=== PATIENT | female | born 1990 | race Caucasian/White ===

== ENCOUNTER 2016-08-17 02:44 | Emergency (ER) | payer OTHER ==
[~2016-08-17] VITALS: Ht 160 cm; Wt 65.0 kg
[~2016-08-17 02:44] MED LIST: LEVE500 PO
[2016-08-17 02:48] VITALS: BP 120/71; PULSE 92; RESP 14; TEMP 97.4; O2SAT 97
--- NOTE | 2016-08-17 03:08 | PD ---
HPI Chief Complaint: vaginal bleeding Time Seen by Provider: 02:59 Travel History International Travel<30 days: No Contact w/Intl Traveler<30days: No History of Present Illness HPI 26-year-old female 5 para 3 1 complains of vaginal spotting for 2 days, only noticeable after using the bathroom. She is had minimal abdominal cramping. She's had no back pain. As of yet no ultrasound has been performed. She denies nausea vomiting fever or chills. Based on last menstruation she is believed to be about 2 months . She describes occasional mild abdominal cramps. No nausea vomiting fever or chills. 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 HEAD: Atraumatic. Normocephalic. EYES: Pupils equal and round. No scleral icterus. No injection or drainage. ENT: No nasal bleeding or discharge. Mucous membranes pink and moist. NECK: Trachea midline. No JVD. CARDIOVASCULAR: Regular rate and rhythm. No murmur appreciated. RESPIRATORY: No accessory muscle use. Clear to auscultation. Breath sounds equal bilaterally. GASTROINTESTINAL: Soft. Minimal tenderness and suprapubic abdomen distribution. MUSCULOSKELETAL: No obvious deformities. No clubbing. No cyanosis. No edema. NEUROLOGICAL: Awake and alert. No obvious cranial nerve deficits. Motor grossly within normal limits. Normal speech. PSYCHIATRIC: Appropriate mood and affect; insight and judgment normal. Data Data Last Documented VS Vital Signs Date Time Temp Pulse Resp B/P Pulse Ox O2 Delivery O2 Flow Rate FiO2 08/17/16 02:48 97.4 92 14 120/71 97 Room Air Vital signs reviewed Orders Beta Hcg (Quant/Titer) (08/17/16 03:14) Complete Rh (08/17/16 03:14) Urinalysis - C+S If Indicated (08/17/16 03:14) Us Pelvis (Ques Pr/Ect)W Trans (08/17/16 ) Labs Laboratory Tests Test 08/17/16 03:15 Urine Color YELLOW Urine Turbidity CLEAR Urine pH 6.0 Urine Specific [place] 1.024 Urine Protein TRACE mg/dL Urine Glucose (UA) NEG mg/dL Urine Ketones NEG mg/dL Urine Occult Blood NEG Urine Nitrite NEG Urine Bilirubin NEG Urine Urobilinogen LESS THAN 2.0 MG/DL Urine Leukocyte Esterase NEG Urine RBC 1 /hpf Urine WBC 1 /hpf Urine Squamous Epithelial 1 /hpf Cells Urine Bacteria RARE /hpf Urine Mucus FEW /lpf Microscopic Urinalysis Comment CULT NOT INDICATED Human Chorionic Gonadotropin, [id number] MIU/ML Quant Blood Type O POSITIVE Rho(D) Type POSITIVE MDM Medical Decision Making Medical Screen Exam Complete: Yes Emergency Medical Condition: Yes Medical Record Reviewed: Yes Differential Diagnosis IUP, UTI, ectopic , ov torsion, appendicitis, TOA, cervicitis, BV, Trichomoniasis, ov cyst, hernia, mittelschmerz, pain from menstruation Narrative Course UA: possible bacteriuria HC,787 O positive US: 9w2d iup with subchorionic hemorrhage The patient is resting comfortably and feels better, is alert and in no distress. The patients results and examination findings were discussed. The repeat examination is unremarkable and benign. The history, exam, diagnostic testing, and current condition do not suggest any significant pathology to warrant further testing, continued ED treatment, admission, or surgical evaluation at this point. The vital signs have been stable. The patient does not have uncontrollable pain, intractable vomiting, or other significant symptoms. The patient's condition is stable and appropriate for discharge. The patient will pursue further outpatient evaluation with a primary care physician or other designated or consulting physician as indicated in the discharge instructions. The patient expressed understanding and was agreeable with this plan. Diagnosis Primary Impression: Threatened miscarriage in early Additional Impressions: Subchorionic hemorrhage in first trimester Bacteriuria during in first trimester Referrals: Helene Hendricks MD 2 days Additional Instructions: You have a choice when it comes to health care, and we are glad that you chose [facility]. Hopefully, we have met your expectations on today's visit. You are welcome to return to [facility] at any time, as we are committed to meeting the health care needs of our community. Med/Other Pt SpecificInfo: Prescription(s) given Scripts Cephalexin (Keflex)500 Mg [id number] Mg PO Q12H 5 Days Ref 0 Prov:Chepe Saavedra MD 08/17/16 Multivit-Min W/Fe-FA ( Forte)1 Tab Tab1 Tab PO DAILY 90 Days Ref 3 Prov:Chepe Saavedra MD 08/17/16 Disposition: 01 DISCHARGE HOME Condition: Stable Chepe Saavedra MD Aug 17, 2016 03:07
[2016-08-17 04:02] LABS: BACTERIA, URINE RARE /hpf; BLOOD, URINE NEG (NEG); COMMENT (UR) CULT NOT INDICATED; CULTURE IF INDICATED CULT NOT INDICATED; GLUCOSE,URINE NEG (NEG); KETONE, URINE NEG (NEG); MUCUS URINE FEW /lpf (OCC); NITRITE,URINE NEG (NEG); SQUAMOUS EPITHELIAL CELL URINE 1 /hpf (0-5); URINE COLOR YELLOW (YELLW/STRAW)
[2016-08-17] MEDS ORDERED: PRENTAB36 PO (04:03)
[2016-08-17 04:12] LABS: BETA HCG QUANT 121787 MIU/ML (0-5)
--- NOTE | 2016-08-17 05:57 | RADRPT ---
EXAM DATE/TIME: 08/17/2016 04:43 [facility] COMPARISON: No previous studies available for comparison. INDICATIONS : Pelvic pain. Bleeding. LAB(S): Beta-hC MEDICAL HISTORY : . Seizures. Depression. IV meth use daily. SURGICAL HISTORY : No recprded surgical history. ENCOUNTER: Initial ACUITY: 4-6 days PAIN SCORE: 6/10 LOCATION: Bilateral pelvis MEASUREMENTS: UTERUS: 11.8 x 8.5 x 8.9 cm ENDOMETRIAL STRIPE: >20 mm RIGHT OVARY: 3.3 x 1.8 x 2.2 cm LEFT OVARY: 2.7 x 1.3 x 1.2 cm TV PROBE UTILIZED: Probe#4 - SN [id number] FINDINGS: UTERUS: Gestational sac in view of sac and pole noted. [employer]-rump length is approximately 2.54 cm which corresponds to a gestational age of 9 weeks 2 days. heart tones are demonstrated. There is a 2 .0 x 1.2 x 2.0 cm subchorionic hemorrhage. RIGHT OVARY: Ovary contains no mass or significant cystic lesion. LEFT OVARY: Ovary contains no mass or significant cystic lesion. MISCELLANEOUS: Trace free fluid. CONCLUSION: Single, viable intrauterine with a subchorionic hemorrhage as above. Mango Gracia MD on August 17, 2016 at 5:54 Board Certified Radiologist. This report was verified electronically.
[2016-08-17] MEDS ORDERED: CEPH-460 PO (06:03)
== END 2016-08-17 06:31 | disposition home or self-care (01) ==
LOC: NEPE 02:44
DX: O20.0 Threatened abortion (principal); O46.8X1 Other antepartum hemorrhage, first trimester; O28.8 Other abnormal findings on antenatal screening of mother; Z3A.08 8 weeks gestation of pregnancy
CPT/HCPCS: 76700; 76817; 81001; 84702; 86901

== ENCOUNTER 2016-11-14 20:09 | Emergency (ER) | payer OTHER ==
[~2016-11-14 20:09] MED LIST changes: +CEPH-460 PO; -LEVE500 PO; +PRENTAB36 PO
[2016-11-14] MEDS ORDERED: CEPH-460 PO (21:08)
--- NOTE | 2016-11-14 21:09 | PD ---
HPI Chief Complaint This patient presents here for check of viability because she is being [employer] acted may have to have that before the take her, she she can out of assisted today, been in the assisted 3 months, Date Seen: November 14, 2016 Travel History International Travel<30 Days: No Contact w/Intl Traveler<30Days: No Known Affected Area: No History of Present Illness HPI This patient is 26-year-old white female G 5 para 3 A1 now at 23 weeks presents for viability check before she can be [facility] she denies abdominal pain ,bleeding ,leakage of fluid the patient's been injected over the last 3 months she's got out today and is going to the [facility] and that to another facility. And at that facility that Dr. Mesa will see the patient , she has not seen Dr. Mesa as of yet her only complaint is of which she describes as a cellulitis in both her pretibial lower extremities that she's been on Keflex for for several days and now needs another prescription for Keflex to continue that medication Para: 3 : 5 History Obstetric History Obstetric History 3 vaginal deliveries and 1 loss Social History Narrative Social History Patient just getting out of assisted today and [facility] now Alcohol Use: Yes Tobacco Use: Yes Substance Abuse: Yes Allergies-Medications (Allergen,Severity, Reaction): Coded Allergies: No Known Allergies (Verified , 08/17/16) Home Meds Active Scripts Cephalexin (Keflex)500 Mg [id number] Mg PO Q6H #30 CAP Ref 0 Prov:Luis Darnell II, MD 11/14/16 Cephalexin (Keflex)500 Mg [id number] Mg PO Q12H 5 Days Ref 0 Prov:Chepe Saavedra MD 08/17/16 Multivit-Min W/Fe-FA ( Forte)1 Tab Tab1 Tab PO DAILY 90 Days Ref 3 Prov:Chepe Saavedra MD 08/17/16 Review of Systems General / Constitutional: No: Fever, Weight Gain, Chills, Other Eyes: No: Diploplia, Blurred Vision, Visual changes, Pain, Photophobia HENT: No: Headaches, Vertigo, Lightheadedness Cardiovascular: No: Irregular Rhythm, Chest Pain or Discomfort, Palpitations, Tachycardia, Syncope, Varicosities, Edema, Cyanosis Respiratory: No: Cough, Short of Breath, Other Gastrointestinal: No: Nausea, Vomiting, Diarrhea Genitourinary: No: Decreased Urinary Output, Oliguria Musculoskeletal: Pain, No: Limited ROM, Weakness, Cramping, Edema Skin: Rash, No Itching, No Dryness, No Lumps, No Change in Pigmentation, No Change in Nails, No Alopecia, No Lesions Neurologic: No: Weakness, Dizziness, Syncope, Focal Abnormalities, Coordination Problem, Headache, Slurred Speech, Seizures Psychiatric: No: Depression, Suicidal Ideations, Homicidal Ideation Endocrine: No: Heat Intolerance, Cold Intolerance, Polydipsia, Polyuria, Other Physical Exam Narrative GENERAL: Well-nourished, well-developed patient. SKIN: Warm and dry. HEAD: Normocephalic and atraumatic. EYES: No scleral icterus. No injection or drainage. ENT: No nasal drainage noted. Mucous membranes pink. Airway patent. NECK: Supple, trachea midline. No JVD. CARDIOVASCULAR: Regular rate and rhythm without murmurs, gallops, or rubs. RESPIRATORY: Breath sounds equal bilaterally. No accessory muscle use. BREASTS: Bilateral exam showed no masses , no retractions, no nipple discharge. ABDOMEN/GI: Abdomen soft, non-tender, bowel sounds present, no rebound, no guarding Gravid to [23-] weeks size Fundal Height: [23-] GENITOURINARY: Membranes: [intact ] Uterine Contractions: [none-] FHT's: Category: [-1] Baseline: [-133] Reactive: [-] too early Variability: [-mod] Decels: [-] EXTREMITIES patient's of pretibial shins bilaterally are somewhat swollen and somewhat tender and is very slight pink rash on both sides consistent with a mild cellulitis BACK: Nontender without obvious deformity. No CVA tenderness. NEUROLOGICAL: Awake and alert. Motor and sensory grossly within normal limits. Five out of 5 muscle strength in all muscle groups. Normal speech. MDM Interpretation(s) 26-year-old white female at 23 weeks who presents for check of viability before she can go to the [employer], she has no obstetric problem baby's heart rate tracing is within normal limits no contractions she has no pain bleeding or leakage of fluid. Her cervix was not checked tonight her only complaint is positive mild cellulitis in both lower extremities below the knees in the pretibial area ,.diagnosed recently had been on Keflex for this she wants a repeat a prescription for Keflex to continue that. viability was documented with a reassuring heart rate tracing and the fact patient states baby is active Plan Plan to give her a prescription for Keflex 500mg , 4 times a day tonight she is to elevate her legs with ice packs on decreased swelling Diagnosis Diagnosis: Primary Impression: Drug use affecting in second trimester Additional Impression: Cellulitis Disposition: 70 TRANSFER TO OTHER FACILITY Condition: Stable Scripts Cephalexin (Keflex)500 Mg [id number] Mg PO Q6H #30 CAP Ref 0 Prov:Luis Darnell II, MD 11/14/16 Luis Darnell II, MD November 14, 2016 21:09
== END 2016-11-14 21:23 | disposition short-term general hospital (02) ==
LOC: HOBED 20:09
DX: O99.322 Drug use complicating pregnancy, second trimester (principal); L03.116 Cellulitis of left lower limb; L03.115 Cellulitis of right lower limb; Z3A.23 23 weeks gestation of pregnancy; Z72.0 Tobacco use; F19.10 Other psychoactive substance abuse, uncomplicated
CPT/HCPCS: 99283

== ENCOUNTER 2017-02-27 13:52 | Inpatient (IN) | payer OTHER ==
[2017-02-27] VITALS (51 sets, daily range): BP systolic 96–133; BP diastolic 57–83; PULSE 68–105; RESP 18; TEMP 97.8–97.9
[~2017-02-27] VITALS: Ht 167.6 cm; Wt 90.7 kg
[2017-02-27] MEDS ORDERED: LACTATED RINGER'S 1000 ML INJ 1,000 ML IV PRN (15:27)
[2017-02-27] MEDS ORDERED: LIDOCAINE HCL 1% 50 ML VIAL I-DERMAL PRN (15:30)
[2017-02-27] MEDS ORDERED: OXYTOCIN 30 UNITS-500ML PREMIX 500 ML IV SCH (15:30)
[2017-02-27] MEDS ORDERED: CITRIC ACID-SODIUM CITRATE LIQ 30 ML UDC PO SCH (15:30)
[2017-02-27] MEDS ORDERED: SODIUM CHLORID 0.9% 500 ML INJ 500 ML IV PRN (15:30)
[2017-02-27] MEDS ORDERED: MINERAL OIL 10 ML VIAL TOPICAL PRN ×2 (15:30→17:45)
[2017-02-27] MEDS ORDERED: LIDOCAINE HCL 1% 50 ML VIAL INFIL PRN ×2 (15:30→17:45)
[2017-02-27] MEDS ORDERED: OXYTOCIN 30 UNITS-500ML PREMIX 500 ML IV ONE ×2 (15:30→17:45)
[2017-02-27] MEDS ORDERED: FERR325C PO (15:37)
[2017-02-27] MEDS ORDERED: BENA25TA6 PO (15:37)
[2017-02-27] MEDS ORDERED: BUPR2SUB SL (15:37)
[2017-02-27] MEDS ORDERED: SODIUM CHLOR 0.9% 1000 ML INJ 1,000 ML IV PRN (15:47)
[2017-02-27] MEDS: LACTATED RINGER'S 1000 ML INJ 1,000 ML IV SCH ×2 (16:10→21:00)
[2017-02-27 16:21] LABS: AUTOMATED NEUTROPHIL # 5.3 TH/MM3 (1.8-7.7); BASOPHIL % 0.3 % (0.0-2.0); EOSINOPHIL # 0.2 TH/MM3 (0-0.4); EOSINOPHIL % 2.5 % (0.0-4.0); HEMATOCRIT 35.2 % (35.0-46.0); HEMO FLAGS DIFF FINAL; LYMPH % 25.3 % (9.0-44.0); MEAN CELL VOLUME 85.3 FL (80.0-100.0); MEAN CORPUSCULAR HEMOGLOBIN 28.4 PG (27.0-34.0); MEAN CORPUSCULAR HGB CONC 33.3 % (32.0-36.0); MONO % 6.5 % (0.0-8.0); NEUT % 65.4 % (16.0-70.0); PLATELET COUNT 120 TH/MM3 (150-450); RED BLOOD COUNT 4.12 MIL/MM3 (4.00-5.30); RED CELL DISTRIBUTION WIDTH 18.8 % (11.6-17.2); WHITE BLOOD COUNT 8.1 TH/MM3 (4.0-11.0)
[2017-02-27 16:24] LABS: BACTERIA, URINE FEW /hpf; BLOOD, URINE NEG (NEG); COMMENT (UR) CULTURE INDICATED; CULTURE IF INDICATED CULTURE INDICATED; GLUCOSE,URINE NEG (NEG); KETONE, URINE NEG (NEG); MUCUS URINE FEW /lpf (OCC); NITRITE,URINE NEG (NEG); SQUAMOUS EPITHELIAL CELL URINE 26 /hpf (0-5); TRANSITIONAL EPI CELLS, URINE <1 /hpf; URINE COLOR YELLOW (YELLW/STRAW)
--- NOTE | 2017-02-27 17:49 | PD.LABORPN ---
Subjective Subjective admitted at 37 6/7 for 6/10 BPP and inducible cervix. [facility] brought her around 2 :15. Pitocin started. GBS not back yet. She is currently comfortably at 6 mu/ min Objective Vital Signs Vital Signs Date Time Temp Pulse Resp B/P Pulse Ox O2 Delivery O2 Flow Rate FiO2 02/27/17 17:38 97.8 02/27/17 17:17 68 125/74 02/27/17 16:48 73 106/66 02/27/17 16:48 73 106/66 02/27/17 16:48 73 106/66 02/27/17 16:15 83 112/78 Objective strip category 1 3-4 cm /50 %/-2 Arom clear Assessment/Plan Assessment and Plan anticpate epidural prn Diya Mesa MD Feb 27, 2017 17:49
[2017-02-27] MEDS ORDERED: PENICILLIN G POTASSIUM INJ 5,000,000 UNITS in SODIUM CHLORIDE 0.9% INJ 100 ML IV ONE (18:00)
--- NOTE | 2017-02-27 18:58 | HHI.HP ---
HPI Chief Complaint 376/7 late entrant to [facility] residing at [facility] low platelets in snf substance use disorder on subutex 2mg daily Date Seen: Feb 27, 2017 Travel History International Travel<30 Days: No Contact w/Intl Traveler<30Days: No Known Affected Area: No History of Present Illness HPI 26 yo swf first to our office at 37 weeks with some care at [facility]. Known Hep C. Placed on subutex 2 mg daily for substance use disorder. BPP in my office today 12/21 with 3 cm cervix and irregular UCs. Placenta is grade 3. States she feels she is going into labor and has decreased movement. Sent for induction. Para: 3 : 5 Allergies-Medications (Allergen,Severity, Reaction): Coded Allergies: No Known Allergies (Verified , 02/27/17) Home Meds Active Scripts Multivit-Min W/Fe-FA ( Forte)1 Tab Tab1 Tab PO DAILY 90 Days Ref 3 Prov:Chepe Saavedra MD 08/17/16 Reported Medications Diphenhydramine HCl (Benadryl Allergy)25 Mg Tablet Po Bid 02/27/17 Ferrous Sulfate (Iron)325 Mg [id number] Mg PO BIDPC #60 TAB Ref 0 02/27/17 Buprenorphine 2 Mg Subl2 Mg SL 02/27/17 Discontinued Scripts Cephalexin (Keflex)500 Mg [id number] Mg PO Q6H #30 CAP Ref 0 Prov:Luis Darnell II, MD 11/14/16 Cephalexin (Keflex)500 Mg [id number] Mg PO Q12H 5 Days Ref 0 Prov:Chepe Saavedra MD 08/17/16 Physical Exam Vital Signs Date Time Temp Pulse Resp B/P Pulse Ox O2 Delivery O2 Flow Rate FiO2 02/27/17 18:27 18 02/27/17 18:27 82 120/76 02/27/17 18:23 70 133/78 02/27/17 17:38 97.8 02/27/17 17:30 18 02/27/17 17:17 68 125/74 02/27/17 17:00 18 02/27/17 16:48 73 106/66 02/27/17 16:48 73 106/66 02/27/17 16:48 73 106/66 02/27/17 16:30 18 02/27/17 16:15 83 112/78 Narrative GENERAL: Well-nourished, well-developed patient. Very poor dentition SKIN: Warm and dry. old scars and tracks HEAD: Normocephalic and atraumatic. EYES: No scleral icterus. No injection or drainage. ENT: No nasal drainage noted. Mucous membranes pink. Airway patent. NECK: Supple, trachea midline. No JVD. CARDIOVASCULAR: Regular rate and rhythm without murmurs, gallops, or rubs. RESPIRATORY: Breath sounds equal bilaterally. No accessory muscle use. BREASTS: Bilateral exam showed no masses , no retractions, no nipple discharge. ABDOMEN/GI: Abdomen soft, non-tender, bowel sounds present, no rebound, no guarding Gravid to [-] weeks size Fundal Height: [-] GENITOURINARY: External Genitalia: intact and normal in appearance 50/-2/3-4 strip here category 1] EXTREMITIES: No cyanosis or edema. BACK: Nontender without obvious deformity. No CVA tenderness. NEUROLOGICAL: Awake and alert. Motor and sensory grossly within normal limits. Five out of 5 muscle strength in all muscle groups. Normal speech. Data Data Orders Admit To Inpatient (02/27/17 ) Code Status (02/27/17 15:27) Vital Signs (Adult) .Per protocol (02/27/17 15:27) Activity Oob Ad Brittni (02/27/17 15:27) Heart (02/27/17 15:27) Amnioinfusion (02/27/17 15:27) Urinary Catheter Management .ONCE (02/27/17 15:27) Diet Liquid (02/27/17 Dinner) Lactated Ringer's 1000 Ml Inj (Lr 1000 M (02/27/17 15:27) Lactated Ringer's 1000 Ml Inj (Lr 1000 M (02/27/17 15:27) Sodium Chlorid 0.9% 500 Ml Inj (Ns 500 M (02/27/17 15:30) Sodium Chlor 0.9% 1000 Ml Inj (Ns 1000 M (02/27/17 15:47) Lidocaine 1% Inj (50 Ml) (Xylocaine 1% I (02/27/17 15:30) Citric Acid-Sodium Citrate Liq (Bicitra (02/27/17 15:30) Fentanyl Inj (Fentanyl Inj) (02/27/17 15:30) Fentanyl Inj (Fentanyl Inj) (02/27/17 15:30) Complete Blood Count With Diff (02/27/17:) Hold Clot (02/27/17) Abo/Rh Blood Type (02/27/17:) Urinalysis - C+S If Indicated (02/27/17:) Rapid Plasma Regin (Rpr) W Ttr (02/27/17:) Hepatitis Profile (02/27/17:) No Care Spec Serology (02/27/17:) Resp Oxygen Non Rebreathe Mask (02/27/17 ) ^ Epidural / Intrathecal Infus (02/27/17:) Oxytocin 30 Units-500ml Premix (Pitocin (02/27/17:30) Lidocaine 1% Inj (50 Ml) (Xylocaine 1% I (02/27/17) Light Mineral Oil (Muri-Lube Oil) (02/27/17:) ^ Non Stress Test (02/27/17) Response To Medication .Post New Med Administration, Reaction (02/27/17:) ^ Discontinue Medication (02/27/17:) Oxytocin 30 Units-500ml Premix (Pitocin (02/27/17:30) Inpatient Certification (02/27/17 ) Specimen To Be Collected PRN (02/27/17 15:27) Urine Culture (02/27/17 15:00) Penicillin G Potassium Inj (Pfizerpen-G (02/27/17 18:00) Penicillin G Potassium Inj (Pfizerpen-G (02/27/17 22:00) Resp Oxygen Non Rebreathe Mask (02/27/17 ) Labs Laboratory Tests Test 02/27/17 02/27/17 14:45 15:00 White Blood Count 8.1 Red Blood Count 4.12 Hemoglobin 11.7 Hematocrit 35.2 Mean Corpuscular Volume 85.3 Mean Corpuscular Hemoglobin 28.4 Mean Corpuscular Hemoglobin 33.3 Concent Red Cell Distribution Width 18.8 Platelet Count 120 Mean Platelet Volume 10.7 Neutrophils (%) (Auto) 65.4 Lymphocytes (%) (Auto) 25.3 Monocytes (%) (Auto) 6.5 Eosinophils (%) (Auto) 2.5 Basophils (%) (Auto) 0.3 Neutrophils # (Auto) 5.3 Lymphocytes # (Auto) 2.0 Monocytes # (Auto) 0.5 Eosinophils # (Auto) 0.2 Basophils # (Auto) 0.0 CBC Comment DIFF FINAL Differential Comment Blood Type O POSITIVE Band and Hold Urine Color YELLOW Urine Turbidity HAZY Urine pH 6.0 Urine Specific [place] 1.021 Urine Protein TRACE Urine Glucose (UA) NEG Urine Ketones NEG Urine Occult Blood NEG Urine Nitrite NEG Urine Bilirubin NEG Urine Urobilinogen LESS THAN 2.0 Urine Leukocyte Esterase MOD Urine RBC 2 Urine WBC 9 Urine Squamous Epithelial 26 Cells Urine Transitional Epithelial <1 Cells Urine Amorphous Sediment RARE Urine Bacteria FEW Urine Mucus FEW Microscopic Urinalysis Comment CULTURE INDICATED Date/Time Procedure Status Source Growth 02/27/17 15:00 Urine Culture Received Urine Clean Catch Pending Assessment/Plan Assessment and Plan admit for induction via AROM and pitocin anticipate continue subutex at 2 mg sublingual in am. Diya Mesa MD Feb 27, 2017 18:58
--- NOTE | 2017-02-27 19:00 | PD.LABORPN ---
Subjective Subjective getting more uncomfortable complaining of headache Objective Vital Signs Vital Signs Date Time Temp Pulse Resp B/P Pulse Ox O2 Delivery O2 Flow Rate FiO2 02/27/17 18:27 18 02/27/17 18:27 82 120/76 02/27/17 18:23 70 133/78 02/27/17 17:38 97.8 02/27/17 17:30 18 02/27/17 17:17 68 125/74 02/27/17 17:00 18 02/27/17 16:48 73 106/66 02/27/17 16:48 73 106/66 02/27/17 16:48 73 106/66 02/27/17 16:30 18 02/27/17 16:15 83 112/78 Objective strip category 1 4/50% /-1 well applied Assessment/Plan Assessment and Plan treat headache epidural prn. Diya Mesa MD Feb 27, 2017 19:00
[2017-02-27] MEDS ORDERED: ACETAMINOPHEN 325 MG TAB PO ONE (20:00)
[2017-02-27] MEDS ORDERED: fentaNYL 2MCG-BUPIV 0.125% INJ 100 ML ONE (20:43)
[2017-02-27] MEDS ORDERED: ePHEDrine/NS 25 MG/5 ML SYR IV PRN (22:00)
[2017-02-27] MEDS ORDERED: DO NOT ADMINISTER ANTICOAGULANTS PRN (22:00)
[2017-02-27] MEDS ORDERED: NO SYSTEM NARCOTICS PRN (22:00)
[2017-02-27] MEDS: PENICILLIN G POTASSIUM INJ 2,500,000 UNITS in SODIUM CHLORIDE 0.9% INJ 100 ML IV SCH (22:34)
[2017-02-27] MEDS: fentaNYL 2MCG-BUPIV 0.125% 100 ML EPIDURAL SCH (22:34)
[2017-02-28] VITALS (79 sets, daily range): BP systolic 86–132; BP diastolic 44–78; PULSE 64–115; RESP 16–18; TEMP 97–98.7
[2017-02-28] MEDS: LACTATED RINGER'S 1000 ML INJ 1,000 ML IV SCH
[2017-02-28] MEDS: PENICILLIN G POTASSIUM INJ 2,500,000 UNITS in SODIUM CHLORIDE 0.9% INJ 100 ML IV SCH ×3 (03:04→10:00)
[2017-02-28] MEDS: fentaNYL 2MCG-BUPIV 0.125% 100 ML EPIDURAL SCH ×3 (03:47→08:17)
[2017-02-28] MEDS ORDERED: BUPIVACAINE HCL PF 0.25% 10 ML VIAL ONE (05:33)
[2017-02-28] MEDS ORDERED: LIDOCAINE HCL 1.5% PF SOLN 20 ML AMP ONE (05:33)
--- NOTE | 2017-02-28 07:24 | PD.OB.DELI ---
Anesthesia: Epidural Episiotomy: None Vaginal Delivery: Normal Presentation: Occiput anterior Nuchal Cord: Other (true knot) Delayed cord clamping (45 sec): Yes : Female One Minute : 8 Five Minute : 9 Weight: >8 Placenta: Spontaneous delivery Laceration: No lacerations (mom on subutex 2mg daily earlier history of polysubstance abuse) Diya Mesa MD Feb 28, 2017 07:24
[2017-02-28] MEDS ORDERED: SODIUM CHLORIDE 0.9% FLUSH 10 ML FLUSH IV FLUSH PRN (07:30)
[2017-02-28] MEDS ORDERED: ONDANSETRON ODT 4 MG TAB PO PRN (07:30)
[2017-02-28] MEDS ORDERED: BENZOCAINE 20% TOPICAL SPRAY 60 ML CAN TOPICAL PRN (07:30)
[2017-02-28] MEDS ORDERED: ALUMINUM/MAGNESIUM/SIMETH 30 ML CUP PO PRN (07:30)
[2017-02-28] MEDS ORDERED: OXYTOCIN 30 UNITS-500ML PREMIX 500 ML IV SCH (07:30)
[2017-02-28] MEDS ORDERED: DOCUSATE SODIUM 50 MG/SENNA 8.6 MG TAB PO PRN (07:30)
[2017-02-28] MEDS ORDERED: WITCH HAZEL 50%/GLYCERIN 12.5% 40 PAD JAR TOPICAL PRN (07:30)
[2017-02-28] MEDS ORDERED: ZOLPIDEM TARTRATE 5 MG TAB PO PRN (07:30)
[2017-02-28] MEDS ORDERED: BUPRENORPHINE HCL 8 MG SUBLINGUAL TAB SL ONE (07:30)
[2017-02-28] MEDS: IBUPROFEN 600 MG TAB PO PRN ×3 (08:24→23:41)
[2017-02-28] MEDS ORDERED: SODIUM CHLORIDE 0.9% FLUSH 10 ML FLUSH IV FLUSH SCH (09:00)
[2017-02-28] MEDS: ACETAMINOPHEN 325 MG TAB PO PRN ×4 (10:00→23:41)
[2017-02-28] MEDS: BUPRENORPHINE HCL 8 MG SUBLINGUAL TAB SL SCH (13:30)
[2017-02-28] MEDS ORDERED: PILL SPLITTER OTHER PRN (13:45)
[2017-02-28] MEDS ORDERED: DIPHTH/TETANUS/ACEL PERTUSSIS (BOOSTER) 0.5 ML VIAL/PFS IM ONE (16:00)
[2017-02-28] MEDS ORDERED: MEASLES, MUMPS, RUBELLA VACCINE 0.5 ML VIAL SQ ONE (16:00)
[2017-03-01] MEDS: ACETAMINOPHEN 325 MG TAB PO PRN (05:59)
[2017-03-01] MEDS: IBUPROFEN 600 MG TAB PO PRN (05:59)
[2017-03-01 08:00] VITALS: BP 110/78; PULSE 77; RESP 16; TEMP 98.7
--- NOTE | 2017-03-01 08:02 | HHI.OB ---
Subjective Post Day: 1 Remarks sad with imminent separation needs suboxone back to [facility] today Objective Vitals/I&O Vital Signs Date Time Temp Pulse Resp B/P Pulse Ox O2 Delivery O2 Flow Rate FiO2 02/28/17 20:14 18 02/28/17 19:23 97.0 69 16 114/64 02/28/17 09:48 98.4 72 18 02/28/17 09:48 116/68 02/28/17 08:48 18 02/28/17 08:45 76 112/64 02/28/17 08:30 77 112/66 02/28/17 08:20 18 02/28/17 08:15 84 110/64 02/28/17 08:05 18 Objective Remarks GENERAL: Well-nourished, well-developed patient. CARDIOVASCULAR: Regular rate and rhythm without murmurs, gallops, or rubs. RESPIRATORY: Breath sounds equal bilaterally. No accessory muscle use. ABDOMEN/GI: Abdomen soft, non-tender. Fundus: Firm, non-tender at umbilicus. GENITOURINARY: Light to moderate bleeding. EXTREMITIES: No cyanosis or edema, non-tender, without signs of DVT. Medications and IVs Current Medications Medications (Trade) Dose Ordered Sig/Trung Route Start Time Stop Time Status Last Admin Lactated Ringer's 1,000 ml @ 125 mls/hr Q8H IV 02/27/17 15:27 02/28/17 00:00 Lactated Ringer's 1,000 ml @ 3,000 mls/hr Q20M PRN IV 02/27/17 15:27 (NS 1000 ml Inj) 1,000 ml @ 100 mls/hr Q10H PRN IV 02/27/17 15:47 (fentaNYL INJ) 50 mcg Q1H PRN IV PUSH 02/27/17 15:30 (fentaNYL INJ) 100 mcg Q1H PRN IV PUSH 02/27/17 15:30 Mineral Oil 10 ml 10 ml UNSCH PRN TOPICAL 02/27/17 15:30 Oxytocin 500 ml @ 0 mls/hr TITRATE IV 02/27/17 15:30 02/27/17 16:12 Penicillin G Potassium [id number] units/Sodium Chloride 100 ml @ 200 mls/hr Q4H IV 02/27/17 22:00 02/28/17 06:32 (fentaNYL 2MCG-BUPIV 0.125% INJ) 100 ml @ 0 mls/hr TITRATE EPIDURAL 02/27/17 22:00 02/28/17 03:47 (NS Flush) 2 ml BID IV FLUSH 02/28/17 09:00 (NS Flush) 2 ml UNSCH PRN IV FLUSH 02/28/17 07:30 (Tylenol) 650 mg Q4H PRN PO 02/28/17 07:30 03/01/17 05:59 (Motrin) 600 mg Q6H PRN PO 02/28/17 07:30 03/01/17 05:59 (Americaine 20% Top Spr) 1 spray Q4H PRN TOPICAL 02/28/17 07:30 02/28/17 10:01 (Tucks Pads) 1 applic QID PRN TOPICAL 02/28/17 07:30 02/28/17 10:00 (Jeanie-Colace) 2 tab Q12H PRN PO 02/28/17 07:30 (Ambien) 5 mg HS PRN PO 02/28/17 07:30 (Mag-Al Plus Susp Liq) 15 ml Q8H PRN PO 02/28/17 07:30 (Zofran Odt) 4 mg Q6H PRN PO 02/28/17 07:30 (Buprenorphine) 2 mg DAILY SL 02/28/17 13:30 02/28/17 13:30 (Pill Splitter) 1 ea UNSCH PRN OTHER 02/28/17 13:45 Assessment/Plan Assessment and Plan discharge to [facility] baby may go to father follow up in 6 weeks. Diya Mesa MD Mar 01, 2017 08:02
[2017-03-01] MEDS ORDERED: IBUP-232 PO (08:04)
--- NOTE | 2017-03-01 08:05 | HHI.DCPOC ---
Discharge Care Plan Report Symptoms to Your Doctor -Temperature above 100.5 degrees -Redness, of incision or excessive or foul smelling drainage -Unusual pain or calf pain -Increased vaginal bleeding -Painful or difficulty urinating -Feelings of extreme sadness or anxiety after 2 weeks Goals to Promote Your Health * To prevent worsening of your condition and complications * To maintain your health at the optimal level Directions to Meet Your Goals Take your medications as prescribed Follow your dietary instruction Follow activity as directed Ensure plenty of rest for recovery Drink fluids for hydration Keep your appointments as scheduled Take your immunizations and boosters as scheduled If your symptoms worsen call your PCP, if no PCP go to Urgent Care Center or Emergency Room Smoking is Dangerous to Your Health. Avoid second hand smoke Call the 24-hour crisis hotline for domestic abuse at Diya Mesa MD Mar 01, 2017 08:05
[2017-03-01] MEDS: BUPRENORPHINE HCL 8 MG SUBLINGUAL TAB SL SCH (09:09)
[2017-03-01] MEDS ORDERED: BUPRENORPHINE HCL 8 MG SUBLINGUAL TAB SL ONE (09:15)
== END 2017-03-01 12:15 | DRG 774 ==
LOC: H2EB 13:52 → H1EA 02-28 09:36
PROVIDERS: ADMIT Obstetrics & Gynecology; ATTEND Obstetrics & Gynecology
PROC: 10907ZC Drainage of Amniotic Fluid, Therapeutic from Products of Conception, Via Natural or Artificial Opening (ICD-10-PCS; 2017-02-27)
PROC: 3E033VJ Introduction of Other Hormone into Peripheral Vein, Percutaneous Approach (ICD-10-PCS; 2017-02-27)
PROC: 3E0S3CZ (ICD-10-PCS; 2017-02-27)
PROC: 00HU33Z Insertion of Infusion Device into Spinal Canal, Percutaneous Approach (ICD-10-PCS; 2017-02-27)
PROC: 10E0XZZ Delivery of Products of Conception, External Approach (ICD-10-PCS; principal; 2017-02-28)
DX: O36.8130 Decreased fetal movements, third trimester, not applicable or unspecified (principal); B19.20 Unspecified viral hepatitis C without hepatic coma; O98.42 Viral hepatitis complicating childbirth; O99.12 Other diseases of the blood and blood-forming organs and certain disorders involving the immune mechanism complicating childbirth; D69.6 Thrombocytopenia, unspecified; O99.324 Drug use complicating childbirth; F19.90 Other psychoactive substance use, unspecified, uncomplicated; O75.89 Other specified complications of labor and delivery; K08.9 Disorder of teeth and supporting structures, unspecified; R51 Headache; O69.2XX0 Labor and delivery complicated by other cord entanglement, with compression, not applicable or unspecified; Z3A.37 37 weeks gestation of pregnancy; Z37.0 Single live birth
CPT/HCPCS: 59025; 80074; 81001; 85025; 86592; 86703; 86900; 86901; 87086; J2540; J2590; J7120